=== PATIENT | female | born 1980 | race Caucasian/White ===

== ENCOUNTER 2017-10-12 17:40 | Emergency (ER) | payer BC ==
[2017-10-12 19:50] VITALS: BP 155/105
[2017-10-12] MEDS ORDERED: Clindamycin CAP* 150 MG PO ONE (20:12)
[2017-10-12] MEDS ORDERED: Clindamycin Cap(NF) 300 MG CAP PO SCH (21:00)
--- NOTE | 2017-10-24 09:38 | UC ---
Throat Pain/Nasal Terence HPI - HPI Summary HPI Summary: left upper sinus & dental pain restarted about Kavitha, has plans to see dentist early next week - History of Current Complaint Chief Complaint: UCGeneralIllness Stated Complaint: SINUS/GUM PAIN Time Seen by Provider: 10/12/17 20:00 Hx Obtained From: Patient Hx Last Menstrual Period: had ablation ?: No Onset/Duration: Gradual Onset, Lasting Weeks Pain Intensity: 3 Pain Scale Used: 0-10 Numeric - Allergies/Home Medications Allergies/Adverse Reactions: Allergies Allergy/AdvReac Type Severity Reaction Status Date / Time Tetanus Toxoid Allergy Severe Difficulty Verified 10/12/17 19:50 Breathing Sulfamethoxazole Allergy Intermediate Hives Verified 10/12/17 19:50 w/Trimethoprim [From Bactrim] PMH/Surg Hx/FS Hx/Imm Hx Previously Healthy: No Endocrine History: Hypothyroidism - Surgical History Surgical History: Yes Surgery Procedure, Year, and Place: c sections. tonsilectomy at age 8 yrs. deviated septum 2002. tubal ligation. uterine ablation 2015 - Family History Known Family History: Positive: None - Social History Occupation: Employed Full-time Lives: With Family Alcohol Use: None Substance Use Type: None Smoking Status (MU): Never Smoked Tobacco Review of Systems Constitutional: Negative Skin: Negative Eyes: Negative ENT: Dental Pain - left upper dental pain Respiratory: Negative Cardiovascular: Negative Gastrointestinal: Negative Genitourinary: Negative Motor: Negative Neurovascular: Negative Musculoskeletal: Negative Neurological: Negative Psychological: Negative Is Patient Immunocompromised?: No All Other Systems Reviewed And Are Negative: Yes Physical Exam Triage Information Reviewed: Yes Appearance: Well-Appearing, No Pain Distress, Well-Nourished Vital Signs: Initial Vital Signs Temp 99 F 10/12/17 19:45 Pulse 61 10/12/17 19:45 Resp 16 10/12/17 19:45 BP 155/105 10/12/17 19:45 Pulse Ox 100 10/12/17 19:45 Vital Signs Reviewed: Yes Eye Exam: Normal Eyes: Positive: Conjunctiva Clear ENT Exam: Normal ENT: Positive: Normal ENT inspection, Hearing grossly normal, Pharynx normal, Uvula midline. Negative: Nasal congestion, Nasal drainage, TMs normal, Tonsillar swelling, Hoarse voice, Dental tenderness, Sinus tenderness Dental Exam: Normal Dental: Positive: Percussion Tenderness @ Neck exam: Normal Neck: Positive: Supple, Nontender, No Lymphadenopathy Respiratory Exam: Normal Respiratory: Positive: Chest non-tender, No respiratory distress, No accessory muscle use Cardiovascular Exam: Normal Cardiovascular: Positive: RRR, Pulses Normal, Brisk Capillary Refill Abdominal Exam: Normal Musculoskeletal Exam: Normal Musculoskeletal: Positive: Strength Intact, ROM Intact, No Edema Neurological Exam: Normal Neurological: Positive: Alert, Muscle Tone Normal Psychological Exam: Normal Skin Exam: Normal Throat Pain/Nasal Course/Dx - Course Assessment/Plan: Clindamycin and prednisone, follow with denist as planned early next week, follow blood pressure with pcp - Differential Dx/Diagnosis Provider Diagnoses: Left upper jaw dental pain with abscess, elevated blood pressure with no dx of hypertension Discharge - Discharge Plan Condition: Stable Disposition: HOME Prescriptions: Clindamycin Cap(NF) [Clindamycin Cap 300 mg Cap(NF)] 300 mg PO Q6H #40 cap predniSONE TAB* [Deltasone TAB*] 40 mg PO DAILY 5 Days #10 tab Patient Education Materials: Dental Abscess (ED), Hypertension (ED) Referrals: Scooby Shay MD [Primary Care Provider] - 2 Weeks Additional Instructions: Follow up with Dentist on Saturday as planned
== END 2017-10-12 20:25 | disposition home or self-care (01) ==
LOC: UCCORT 17:40
DX: K04.7 Periapical abscess without sinus (principal); R03.0 Elevated blood-pressure reading, without diagnosis of hypertension; E03.9 Hypothyroidism, unspecified; Z88.2 Allergy status to sulfonamides; Z88.7 Allergy status to serum and vaccine
CPT/HCPCS: 99212; A9270-GY; G0463

== ENCOUNTER 2018-09-18 21:08 | Emergency (ER) | payer BC ==
[2018-09-18 21:32] VITALS: BP 178/101
[2018-09-18] MEDS ORDERED: Clindamycin CAP* 150 MG PO ONE (21:58)
--- NOTE | 2018-09-18 21:58 | UC ---
[facility] HPI - HPI Summary HPI Summary: Pt c/o nasal congestion right side facila pain and swelling X 10 days. - History of Current Complaint Chief Complaint: UCGeneralIllness Stated Complaint: SINUS / TOOTH PAIN Time Seen by Provider: 09/18/18 21:54 Hx Obtained From: Patient Hx Last Menstrual Period: had ablation ?: No Onset/Duration: Gradual Onset, Lasting Days, Still Present Severity: Moderate Pain Intensity: 4 Aggravating Factor(s): Chewing Related History: Swelling - Allergies/Home Medications Allergies/Adverse Reactions: Allergies Allergy/AdvReac Type Severity Reaction Status Date / Time sulfamethoxazole Allergy Hives Verified 09/18/18 21:32 [From Bactrim] Tetanus Vaccines and Toxoid Allergy Difficulty Verified 09/18/18 21:32 Breathing trimethoprim [From Bactrim] Allergy Hives Verified 09/18/18 21:32 Home Medications: Home Medications Aspirin/Acetaminophen/Caffeine [Excedrin Extra Strength Caplet] 1 each PO ONCE 09/18/18 [History Confirmed 09/18/18] PMH/Surg Hx/FS Hx/Imm Hx Previously Healthy: Yes - Surgical History Surgical History: Yes Surgery Procedure, Year, and Place: c sections. tonsilectomy at age 8 yrs. deviated septum 2002. tubal ligation. uterine ablation 2016 - Family History Known Family History: Positive: Cardiac Disease - Social History Occupation: Employed Full-time Lives: With Family Alcohol Use: None Substance Use Type: None Smoking Status (MU): Never Smoked Tobacco Have You Smoked in the Last Year: No Review of Systems All Other Systems Reviewed And Are Negative: Yes Constitutional: Positive: Fatigue Skin: Positive: Negative Eyes: Positive: Negative ENT: Positive: Dental Pain, Sinus Congestion, Sinus Pain/Tenderness Respiratory: Positive: Negative Cardiovascular: Positive: Negative Gastrointestinal: Positive: Negative Genitourinary: Positive: Negative Motor: Positive: Negative Neurovascular: Positive: Negative Musculoskeletal: Positive: Negative Neurological: Positive: Headache Psychological: Positive: Negative Is Patient Immunocompromised?: No Physical Exam Triage Information Reviewed: Yes Appearance: Ill-Appearing Vital Signs: Initial Vital Signs Temp 98.4 F 09/18/18 21:27 Pulse 61 09/18/18 21:27 Resp 18 09/18/18 21:27 BP 178/101 09/18/18 21:27 Pulse Ox 100 09/18/18 21:27 Vital Signs Reviewed: Yes Eye Exam: Normal ENT: Positive: Nasal congestion, Sinus tenderness Dental Exam: Normal Neck exam: Normal Respiratory Exam: Normal Cardiovascular Exam: Normal Musculoskeletal Exam: Normal Neurological Exam: Normal Psychological Exam: Normal Skin Exam: Normal Dental Complaint Course/Dx - Differential Dx/Diagnosis Provider Diagnosis: Sinusitis Discharge - Sign-Out/Discharge Documenting (check all that apply): Patient Departure All imaging exams completed and their final reports reviewed: No Studies - Discharge Plan Condition: Stable Disposition: HOME Prescriptions: Clindamycin Cap(NF) [Clindamycin Cap 300 mg Cap(NF)] 300 mg PO Q8H #30 cap Patient Education Materials: Sinusitis (ED) Referrals: Scooby Shay MD [Primary Care Provider] - If Needed - Billing Disposition and Condition Condition: STABLE Disposition: Home
== END 2018-09-18 22:05 | disposition home or self-care (01) ==
LOC: UCCORT 21:08
DX: J32.9 Chronic sinusitis, unspecified (principal); Z88.1 Allergy status to other antibiotic agents; Z88.7 Allergy status to serum and vaccine
CPT/HCPCS: 99212; A9270-GY; G0463